=== PATIENT | female | born 1995 | race Caucasian/White ===

== ENCOUNTER 2025-04-11 08:51 | Emergency (ER) | payer OTHER ==
[~2025-04-11] VITALS: Wt 60.8 kg
[~2025-04-11 08:51] MED LIST: ALAVERT10 M1 PO; BIRTH CONTROL1 EAC1 PO; LAMICTAL150 MG PO; MOTRIN600 MG PO; POLY VI SOL,MUL50 ML PO; SINGULAIR10 MG PO; WELLBUTRIN100 MG PO; Zofran4 MG PO
[2025-04-11 09:25] LABS: BILIRUBIN Negative (Negative); BLOOD Negative (Negative); CLARITY Cloudy (Clear); COLOR Yellow (Yellow); GLUCOSE Negative (Negative); KETONE 2+ (Negative); LEUKO ESTERASE 1+ (Negative); NITRITE Negative (Negative)
[2025-04-11] MEDS ORDERED: Ketorolac Tromethamine 15 MG/ML VIAL IV ONE (09:25)
[2025-04-11] MEDS ORDERED: SODIUM CHLORIDE 0.9% 1,000 ML IV ONE (09:25)
[2025-04-11] MEDS ORDERED: Ondansetron Hydrochloride 4 MG/2 ML VIAL IV ONE (09:25)
[2025-04-11] MEDS ORDERED: IOHEXOL 300 MG/ML 100 ML VIAL IV ONE (09:30)
[2025-04-11 09:38] LABS: BACTERIA 1+; EPITHELIAL CELLS TNTC
[2025-04-11 09:38] LABS: BASO % 0.6 % (0.0-1.0); EOS # 0.1 10*3/uL (0.0-0.4); EOS % 1.1 % (1.0-4.0); HEMATOCRIT 40.1 % (37.0-47.0); MEAN CELL VOLUME 97.8 fl (81.0-99.0); MEAN CORPUSCULAR HGB 33.4 pg (27.0-31.0); MEAN CORPUSCULAR HGB CONC 34.2 g/dl (33.0-37.0); MEAN PLATELET VOLUME 10.1 fl (9.6-12.3); MONO # 0.3 10*3/uL (0.1-1.0); MONO % 3.9 % (3.0-9.0); NEUT # 5.7 10*3/uL (2.3-7.9); NEUT % 79.2 % (47.0-73.0); PLATELET COUNT AUTOMATED 238 10*3/uL (130-400); RED CELL DISTRI WIDTH 11.5 % (0-14.5); WHITE BLOOD COUNT 7.2 10*3/uL (4.8-10.8)
[2025-04-11] MEDS ORDERED: IOHEXOL 300 MG/ML 100 ML VIAL ONE (09:51)
[2025-04-11 10:10] LABS: ALKALINE PHOSPHATASE 49 U/L (46-116); BUN 9 mg/dl (9-23); CHLORIDE 106 mmol/L (98-107); LIPASE 26 U/L (12-53); POTASSIUM 3.8 mmol/L (3.4-5.1); SGPT/ALT 9 U/L (5-49)
[2025-04-11] MEDS ORDERED: Ondansetron4 MG PO (11:46)
[2025-04-11] MEDS ORDERED: CARAFATE1 G1 PO (11:46)
== END 2025-04-11 12:20 | disposition home or self-care (01) ==
LOC: ED 08:51
PROVIDERS: Emergency Medicine
DX: K29.70 Gastritis, unspecified, without bleeding (principal); Z79.899 Other long term (current) drug therapy; Z88.1 Allergy status to other antibiotic agents; Z88.8 Allergy status to other drugs, medicaments and biological substances